=== PATIENT | female | born 1995 | race Caucasian/White ===

== ENCOUNTER 2022-07-02 10:17 | Emergency (ER) | payer OTHER, SELFPAY ==
[2022-07-02 10:25] VITALS: BP 134/88; PULSE 93; RESP 14; TEMP 37.1; O2SAT 100
[2022-07-02 10:34] VITALS: BP 134/88; PULSE 93; RESP 14; TEMP 37.1; O2SAT 100
--- NOTE | 2022-07-02 11:17 | ED.URI ---
HPI - URI/Sore Throat General Chief Complaint: Upper Respiratory Infection Stated Complaint: sore throat, trouble swallowing Time Seen by Provider: 07/02/22 11:18 Source: patient, RN notes reviewed and old records reviewed Mode of arrival: ambulatory Limitations: no limitations History of Present Illness HPI Narrative: 27 year old female who presents to [facility] care with complaints of sore throat, cough, with hoarseness since yesterday with throat feeling like it is swollen. Patient reports that she has had some yellowish brown productive cough, has not taken any OTC medications for her symptoms.Patient has not had COVID vaccinations or any flu shot. MD elicited complaint: cough and sore throat Pertinent past history: other (strep throat) Onset (ago): day(s) (1) Able to tolerate fluids by mouth: Yes Treatments prior to arrival: none Related Data Allergies Allergy/AdvReac Type Severity Reaction Status Date / Time No Known Allergies Allergy Verified 07/02/22 10:34 Review of Systems Review of Systems: CONSTITUTIONAL: Denies malaise, chills, sweats, or fever. EYES: Denies visual changes, redness, or discharge. ENT: Reports rhinorrhea, congestion, sinus pain, otalgia and sore throat. CARDIOVASCULAR: Denies chest pain, palpitations, or edema. RESPIRATORY: Reports cough.? Denies dyspnea. GASTROINTESTINAL: Denies abdominal pain, nausea, vomiting, diarrhea SKIN: Denies rash or itching. MUSCULOSKELETAL: Denies myalgia. NEUROLOGIC: Denies headache. All systems reviewed & are unremarkable except as noted in HPI and below PMFSH Past Medical History Medical History (Updated 07/04/22 @ 16:07 by Rose Drummond NP) Acute anxiety Panic attacks Social History Social History (Updated 07/04/22 @ 16:08 by Rose Drummond NP) Alcohol intake: unknown Substance use type: marijuana Living arrangements: with family Gender identity (if verbalized by the patient): Female Comments At time of signature, agree with nursing past medical, surgical, social and family history. There is no relevant family history pertinent to the presenting complaint Exam Narrative: GENERAL: Well-appearing, well-nourished, and in no acute distress. HEAD: Normocephalic EYES: PERRLA, conjunctivae clear ENT: Nares clear, turbinates edematous and erythematous, clear discharge. Mucous membranes moist. TM pearly mcgraw with dull light reflex bilaterally; no tragal tenderness. Oropharynx erythematous without lesions. Tonsils not enlarged and without exudate, no drooling, hoarseness, no trismus, uvula midline. NECK: Supple. No lymphadenopathy CHEST: Clear to auscultation, breath sounds equal. No wheezing, rhonchi, rales, or stridor. No respiratory distress, speaks in full sentences.positive for dry cough, SAO2 100% on room air, HEART: Regular rate and rhythm. No murmur heard. SKIN: Warm, dry, no rash. NEURO: Alert and oriented x3. PSYCH: Normal mood and affect Course Course Emergency Course: Patient is aware of diagnosis, understands and agrees to treatment plan.? Anticipatory guidance given.? Patient agrees to follow-up as directed and is aware of reasons to seek care at the emergency department. Portions of this record may have been created with voice recognition software Level of Care: Express Care Visit Vital Signs Vital signs: Vital Signs Temperature 37.1 C 07/02/22 10:25 Pulse Rate 93 07/02/22 10:25 Respiratory Rate 14 07/02/22 10:25 Blood Pressure 134/88 07/02/22 10:25 Pulse Oximetry 100 07/02/22 10:25 Oxygen Delivery Room Air 07/02/22 10:25 Temperature 37.1 C 07/02/22 10:34 Pulse Rate 93 07/02/22 10:34 Respiratory Rate 14 07/02/22 10:34 Blood Pressure 134/88 07/02/22 10:34 Pulse Oximetry 100 07/02/22 10:34 Oxygen Delivery Room Air 07/02/22 10:34 Reviewed MDM - URI/Sore Throat MDM Narrative Medical decision making narrative: Differential diagnosis considered
== END 2022-07-02 11:33 | disposition home or self-care (01) ==
PROVIDERS: Emergency Provider Registered Nurse
DX: J06.9 Acute upper respiratory infection, unspecified (principal)
CPT/HCPCS: 87081; 87880; 99213; G0463

== ENCOUNTER 2024-03-16 10:02 | Emergency (ER) | payer OTHER, SELFPAY ==
[2024-03-16 10:18] VITALS: BP 132/87; PULSE 82; RESP 16; TEMP 36.9; O2SAT 99
--- NOTE | 2024-03-16 11:13 | ED_ITS ---
HPI - Extremity Problem General Chief complaint: Extremity Problem,Nontraumatic Stated complaint: Numbness in body parts, Source: patient, RN notes reviewed and old records reviewed Mode of arrival: ambulatory Limitations: no limitations History of Present Illness HPI Narrative: 28-year-old female to [facility] Care with intermittent bilateral arm numbness extending into hands as well as intermittent mild to severe weakness of bilateral hands for 1 week. Patient endorses history of chronic lower back pain. Patient reports a recent hospitalization for potassium issues . Patient states that she will be establishing a new PCP in [place] in April, has an appt scheduled. Patient denies any recent injury, illness, upper back pain, allergies, other pertinent medical history. Patient resting comfortably in exam room in no acute distress. Patient moving bilateral upper extremities and all digits of bilateral hands without difficulty in exam room. Related Data Home Medications Medication Instructions Recorded Confirmed No Home Medications 03/16/24 03/16/24 Allergies Allergy/AdvReac Type Severity Reaction Status Date / Time No Known Allergies Allergy Verified 03/16/24 10:27 Review of Systems Review of Systems: All systems reviewed & are unremarkable except as noted in HPI and below Constitutional: Constitutional: Reports no additional constitutional complaints Eyes: Eyes: Reports no additional eye complaints ENT: Reports system reviewed and no additional complaints, except as documented Cardiovascular: Cardiovascular: Reports no additional cardiovascular complaints, Denies chest pain and Denies dyspnea Respiratory: Respiratory: Reports no additional respiratory complaints, Denies cough and Denies dyspnea Musculoskeletal: Musculoskeletal: Reports as per HPI, Reports muscle weakness ( bilateral hands), Reports numbness ( Bilateral upper extremities) and Reports tingling ( bilateral upper extremities) Neurologic: Reports system reviewed and no additional complaints, except as documented Psychiatric: Psychiatric: Reports no additional psychiatric complaints PMFSH Past Medical History Medical History Acute anxiety Panic attacks Social History Social History Alcohol intake: unknown Substance use type: marijuana Living arrangements: with family Gender identity (if verbalized by the patient): Female Comments At the time of my signature, I reviewed and agree with the nursing past medical, surgical, social, and family history. There is no relevant family history pertinent to the patient complaint. Exam Const: General: cooperative, comfortable, no acute distress, alert and well nourished Nutritional Appearance: well nourished Orientation/consciousness: patient oriented x3 Limitations: no limitations HENMT: Head: normal to inspection Ears: external ears normal Face/Nose/Sinus: Normal external nose present, Normal nares present, normal facial exam, No erythema and No edema Face and sinus: normal facial exam, no erythema and no edema Mouth: Yes Normal oral and palatal mucosa present Eyes: General: appearance normal, both eyes and all related structures Neck: Neck: normal visual inspection, full ROM and no meningeal signs Lymphatic: no lymphadenopathy noted and no lymphedema noted Chest: Chest palpation & inspection: normal inspection of the chest Resp: Effort & Inspection: normal respiratory effort and able to speak in complete sentences Auscultation: clear to auscultation bilaterally Cardio: Jugular venous distension: no JVD Rate: regular rate Rhythm: regular rhythm Back/Spine/Pelvis: Back: No back tenderness Cervical Spine: cervical ROM normal, No cervical muscular tenderness and No pain with cervical ROM Skin: General skin exam: normal color, no rashes or lesions noted and turgor normal Neuro: General: patient oriented x3, gait normal, tone normal, moves all extremities and no meningeal signs Speech: normal speech Gait exam (Neuro): Normal gait present Extrem: General: normal to inspection, full ROM and capillary refill normal Right upper extremity: normal to inspection, full ROM and normal capillary refill Left upper extremity: normal to inspection, full ROM and normal capillary refill Psych: Appearance: grossly normal and well kempt Course Course Emergency Course: Some parts of this dictation were generated by voice recognition software and may contain typographical and/or grammatical inaccuracies. Level of Care: Express Care Visit Vital Signs Vital signs: Vital Signs Temperature 36.9 C 03/16/24 10:18 Pulse Rate 82 03/16/24 10:18 Respiratory Rate 16 03/16/24 10:18 Blood Pressure 132/87 03/16/24 10:18 Pulse Oximetry 99 03/16/24 10:18 Oxygen Delivery Room Air 03/16/24 10:18 Temperature 36.9 C 03/16/24 10:18 Pulse Rate 82 03/16/24 10:18 Respiratory Rate 16 03/16/24 10:18 Blood Pressure 132/87 03/16/24 10:18 Pulse Oximetry 99 03/16/24 10:18 Oxygen Delivery Room Air 03/16/24 10:18 reviewed Transfer Transfered to: [facility] Transportation: Other ( private vehicle) Transfer rationale: higher level of care Accepting physician: Denisa HAINES. report given to Denisa. Patient states she has a 1:00 p.m. dental appointment in [place] that she really needs to go to due to extensive dental history. Patient states she will go directly to [facility] after her dental appointment. This was explained to Denisa HAINES in report. MDM - Extremity (Nontraumatic) MDM Narrative Medical decision making narrative: 28-year-old female to Express Care with intermittent bilateral arm numbness ext ending into hands as well as intermittent mild to severe weakness of bilateral hands for 1 week. Patient endorses history of chronic lower back pain. Patient reports a recent hospitalization for potassium issues . Patient states that she will be establishing a new PCP in [place] in April, has an appt scheduled. Patient denies any recent injury, illness, upper back pain, allergies, other pertinent medical history. Patient resting comfortably in exam room in no acute distress. Patient moving bilateral upper extremities and all digits of bilateral hands without difficulty in exam room. Patient is sitting comfortably in exam room nontoxic in appearance. Patient appropriate for transfer to [facility] Transfer instructions reviewed with patient, including strict orders to report directly to the emergency department. Patient states she has a 1:00 p.m. dental appointment in [place] that she really needs to go to due to extensive dental history. Patient states she will go directly to [facility] after her dental appointment. This was explained to Denisa HAINES in report. Patient offered EMS transport. Patient declined and prefers private vehicle. Patient verbalized understanding. Some parts of this dictation were generated by voice recognition software and may contain typographical and/or grammatical inaccuracies. Differential Diagnosis Differential diagnosis: Likely herpes zoster, gout, cellulitis, superficial thrombophlebitis, deep venous thrombosis of upper extremity, lower extremity edema and deep vein thrombosis of lower extremity Discharge Plan Discharge Clinical Impression: Bilateral arm weakness Patient Disposition: Acute Care Hospital Condition: Stable Prescriptions: No Action No Home Medications Follow-up/Referrals: UNKNOWN,DOCTOR [Primary Care Provider] -
--- NOTE | 2024-03-16 11:35 | PC.NURSE ---
Pt left without transfer form. RN contacted [facility] and form was faxed to [phone] so they would have it whenever Pt arrives.
== END 2024-03-16 11:30 | disposition short-term general hospital (02) ==
LOC: EXPBETH 10:06
PROVIDERS: Emergency Provider Nurse Practitioner Family
DX: R53.1 Weakness (principal); F12.90 Cannabis use, unspecified, uncomplicated
CPT/HCPCS: 99212; G0463

== ENCOUNTER 2024-03-16 22:41 | Emergency (ER) | payer OTHER, SELFPAY ==
--- NOTE | ~2024-03-16 | CT_ITS ---
EXAMINATION: CT cervical spine wo con DATE: 03/17/2024 01:51 INDICATION: Arm numbness. TECHNIQUE: Computed tomography (CT) of the cervical spine was performed without intravenous contrast. Automated exposure control and iterative reconstruction technique were employed. The dose-length pro duct was 107.63 mGy-cm. COMPARISON: None FINDINGS: There is kyphosis of cervical spine. Vertebral body heights and intervertebral disc heights are normal. C1 ring is ununited posteriorly, a normal variant. At C7-T1, there is mild right and mod erate left facet joint osteoarthritis. At C7-T1, there is mild left neural foraminal stenosis. No daniel tral canal stenosis. IMPRESSION: 1. Mild cervical spondylosis. Reviewed, dictated and finalized at location A. [employer] DIRECTOR
[2024-03-16 22:43] VITALS: BP 134/88; PULSE 80; RESP 16; TEMP 36.8; O2SAT 100
[2024-03-17] VITALS (9 sets, daily range): BP systolic 111–137; BP diastolic 72–90; PULSE 57; RESP 20; O2SAT 98–100
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
== END 2024-03-17 04:38 | disposition home or self-care (01) ==
PROVIDERS: Emergency Provider Preventive Medicine Aerospace Medicine
DX: R20.2 Paresthesia of skin (principal)
CPT/HCPCS: 72125; 99284